=== PATIENT | female | born 1960 | race Caucasian/White ===

== ENCOUNTER → 2021-05-01 | Outpatient (CLI) | payer BC ==
[~2021-05-01] MED LIST: AMLO-257 PO; CIPR500T10 PO; METR500T PO; ONDA8TAB8 PO
== END | disposition home or self-care (01) ==
LOC: OIH 11:25
PROVIDERS: ATTEND Internal Medicine
DX: M17.0 Bilateral primary osteoarthritis of knee (principal); M19.042 Primary osteoarthritis, left hand; M19.041 Primary osteoarthritis, right hand